=== PATIENT | male | born 1970 | race Caucasian/White ===

== ENCOUNTER 2017-04-28 13:56 | Emergency (ER) | payer OTHER, BC ==
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
[2017-04-28] MEDS ORDERED: LET GEL TOPICAL 1 EA SYR TP ONE (14:07)
[2017-04-28 15:50] VITALS: BP 166/110; PULSE 86; RESP 18; TEMP 97.7; O2SAT 96
== END 2017-04-28 15:50 | disposition home or self-care (01) ==
PROC: 08QNXZZ Repair Right Upper Eyelid, External Approach (ICD-10-PCS; principal; 2017-04-28)
DX: S01.111A Laceration without foreign body of right eyelid and periocular area, initial encounter (principal); S62.121A Displaced fracture of lunate [semilunar], right wrist, initial encounter for closed fracture; S40.211A Abrasion of right shoulder, initial encounter; S50.311A Abrasion of right elbow, initial encounter; I10 Essential (primary) hypertension; V28.0XXA Motorcycle driver injured in noncollision transport accident in nontraffic accident, initial encounter; Y92.89 Other specified places as the place of occurrence of the external cause; Y99.8 Other external cause status; Y93.55 Activity, bike riding